=== PATIENT | female | born 1985 | race African-American/Black ===

== ENCOUNTER 2019-11-05 22:05 | Emergency (ER) | payer SELFPAY | END 2019-11-05 22:19 | disposition left against medical advice (07) | LOC: ER 22:05 | DX: J02.9 Acute pharyngitis, unspecified (principal); Z53.21 Procedure and treatment not carried out due to patient leaving prior to being seen by health care provider ==

== ENCOUNTER 2024-07-10 01:37 | Emergency (ER) | payer MEDICAID ==
[~2024-07-10] VITALS: Ht 167.6 cm; Wt 58.0 kg
[2024-07-10 01:43] VITALS: TEMP 98.3; O2SAT 98
[2024-07-10] MEDS ORDERED: NAPR-1176 MT (05:15)
[2024-07-10 05:28] VITALS: BP 141/87; PULSE 95; RESP 18; O2SAT 99
== END 2024-07-10 05:28 | disposition home or self-care (01) ==
LOC: ER 01:55
DX: S62.611A Displaced fracture of proximal phalanx of left index finger, initial encounter for closed fracture (principal); S62.323A Displaced fracture of shaft of third metacarpal bone, left hand, initial encounter for closed fracture; X58.XXXA Exposure to other specified factors, initial encounter; Y93.89 Activity, other specified; Y92.89 Other specified places as the place of occurrence of the external cause; Y99.8 Other external cause status
CPT/HCPCS: 29125; 73130; 99283